=== PATIENT | male | born 1990 | race Caucasian/White ===

== ENCOUNTER 2016-04-25 15:38 | Emergency (ER) | payer OTHER ==
--- NOTE | 2016-04-25 16:08 | ED NURSING NOTES ---
Clinical Report - Nurses [address] [place] [address] 04/25/2016 15:40 Patient: ARTEM VASQUEZ JR TRIAGE Triage time 1548. Chief Complaint: SORE THROAT. Alert. No acute distress. --15:52 Rubén Wheeler R.N. 15:48 04/25/16. BP: 121/77. HR: 79. RR: 18. O2 saturation: 99%. --15:52 Rubén Wheeler R.N. 15:53 04/25/16. Temp: 98.6 F (oral). --15:53 Rubén Wheeler R.N. Weight: 90.7 kg stated. Height/Length: 74 inches Per Patient. BMI: 25.7. --15:51 Rubén Wheeler R.N. Allergies No Known Drug Allergy. --16:27 Govind Wynne R.N. History Arrived by private vehicle, and accompanied by family. Onset. (about 3 days ago). 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 PAST MEDICAL HX: Immunizations: up-to-date. SOCIAL HX: Never smoker. Occasional alcohol use. History of drug use. (never). He has traveled outside the [place] in the last 3 weeks. FALL RISK ASSESSMENT: Fall risk assessment completed. No fall risk identified. NUTRITIONAL RISK ASSESSMENT: The nutritional risk assessment revealed no deficiencies. FUNCTIONAL ASSESSMENT: Functional assessment: no impairments noted. LEARNING NEEDS ASSESSMENT: The learning needs assessment revealed no barriers. SKIN INTEGRITY ASSESSMENT: Skin integrity risk assessment completed. No skin integrity risk identified. --15:52 Rubén Wheeler R.N. Interventions ID band on patient. --15:52 Rubén Wheeler R.N. PHYSICAL ASSESSMENT Ambulatory to room. GENERAL / NEURO / PSYCH: Alert. Oriented X 4. Appears in no acute distress. HEENT: Pupils equal, round and reactive to light. Pharynx within normal limits. Voice within normal limits. Mouth within normal limits upon inspection. No dental injury noted. Mucous membranes are pink. RESPIRATORY: Respirations not labored. Cough. CVS: Capillary refill less than 2 seconds. SKIN: Skin is warm and dry. Normal skin turgor. --15:52 Rubén Wheeler R.N. GENERAL / NEURO / PSYCH: Alert. Oriented X 4. Appears in no acute distress. --16:12 Rubén Wheeler R.N. NURSING PROGRESS NOTES Side rails up x 1. Bed placed in lowest position. Brakes of bed on. --15:52 Rubén Wheeler R.N. DISPOSITION / DISCHARGE 16:25 04/25/16. Departure time: 1624. Condition at departure: unchanged and stable. No learning barriers present. Reviewed medication(s) side effects, precautions, dosing and course information. Prescription(s) given to the patient. Patient verbalized understanding. Written instructions provided in Hungarian. The patient was discharged by the physician. He was discharged home and accompanied by spouse. He left the Emergency Department ambulatory and via private vehicle. Patient driving. --16:25 Govind Wynne R.N. Locked/Released at 04/25/2016 18:46 by Rubén Wheeler R.N.
--- NOTE | 2016-04-25 16:08 | ED NURSING NOTES ---
Clinical Report - Nurses [facility] [address] [place] [address] 04/25/2016 15:40 Patient: ARTEM VASQUEZ JR TRIAGE Triage time 1548. Chief Complaint: SORE THROAT. Alert. No acute distress. --15:52 Rubén Wheeler R.N. 15:48 04/25/16. BP: 121/77. HR: 79. RR: 18. O2 saturation: 99%. --15:52 Rubén Wheeler R.N. 15:53 04/25/16. Temp: 98.6 F (oral). --15:53 Rubén Wheeler R.N. Weight: 90.7 kg stated. Height/Length: 74 inches Per Patient. BMI: 25.7. --15:51 Rubén Wheeler R.N. Allergies No Known Drug Allergy. --16:27 Govind Wynne R.N. History Arrived by private vehicle, and accompanied by family. Onset. (about 3 days ago). 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 PAST MEDICAL HX: Immunizations: up-to-date. SOCIAL HX: Never smoker. Occasional alcohol use. History of drug use. (never). He has traveled outside the [place] in the last 3 weeks. FALL RISK ASSESSMENT: Fall risk assessment completed. No fall risk identified. NUTRITIONAL RISK ASSESSMENT: The nutritional risk assessment revealed no deficiencies. FUNCTIONAL ASSESSMENT: Functional assessment: no impairments noted. LEARNING NEEDS ASSESSMENT: The learning needs assessment revealed no barriers. SKIN INTEGRITY ASSESSMENT: Skin integrity risk assessment completed. No skin integrity risk identified. --15:52 Rubén Wheeler R.N. Interventions ID band on patient. --15:52 Rubén Wheeler R.N. PHYSICAL ASSESSMENT Ambulatory to room. GENERAL / NEURO / PSYCH: Alert. Oriented X 4. Appears in no acute distress. HEENT: Pupils equal, round and reactive to light. Pharynx within normal limits. Voice within normal limits. Mouth within normal limits upon inspection. No dental injury noted. Mucous membranes are pink. RESPIRATORY: Respirations not labored. Cough. CVS: Capillary refill less than 2 seconds. SKIN: Skin is warm and dry. Normal skin turgor. --15:52 Rubén Wheeler R.N. GENERAL / NEURO / PSYCH: Alert. Oriented X 4. Appears in no acute distress. --16:12 Rubén Wheeler R.N. NURSING PROGRESS NOTES Side rails up x 1. Bed placed in lowest position. Brakes of bed on. --15:52 Rubén Wheeler R.N. DISPOSITION / DISCHARGE 16:25 04/25/16. Departure time: 1624. Condition at departure: unchanged and stable. No learning barriers present. Reviewed medication(s) side effects, precautions, dosing and course information. Prescription(s) given to the patient. Patient verbalized understanding. Written instructions provided in Bruneian. The patient was discharged by the physician. He was discharged home and accompanied by spouse. He left the Emergency Department ambulatory and via private vehicle. Patient driving. --16:25 Govind Wynne R.N. Locked/Released at 04/25/2016 18:46 by Rubén Wheeler R.N.
--- NOTE | 2016-04-25 16:08 | ED CLINICAL REPORT ---
Clinical Report - Physicians/Mid Levels [facility] [address] [place] [address] 04/25/2016 15:40 Patient: ARTEM VASQUEZ JR Arrived- By private vehicle. Historian- patient. HISTORY OF PRESENT ILLNESS Chief Complaint: COUGH and SORE THROAT. This started past few days and is still present (staying the same). It was gradual in onset and has been constant but is not gone now. The illness is described as mild. The patient has had a cough, a sore throat, nasal congestion and a nasal discharge. No sputum production, chest discomfort or pain, fever or muscle aches. No chills, hoarseness, sinus pressure, sinus drainage or ear pain. Additional history - The patient has had contact with a sick spouse. Similar symptoms previously: None. Recent medical care: Not recently seen/assessed. REVIEW OF SYSTEMS No headache, nausea, vomiting, abdominal pain or skin rash. All systems otherwise negative, except as recorded above. PAST HISTORY See nurses notes. Allergies: No Known Drug Allergy. SOCIAL HISTORY Never smoker. Occasional alcohol use. No drug use. Recent travel. ADDITIONAL NOTES The nursing notes have been reviewed. PHYSICAL EXAM Vital Signs: 04/25/2016 15:53 Temp: 98.6 F. 04/25/2016 15:48 BP: 121/77. HR: 79. RR: 18. O2 saturation: 99%. Blood pressure normal. Oxygen saturation normal. Appearance: Alert. No acute distress. Eyes: Pupils equal, round and reactive to light. Eyes normal inspection. ENT: Ears normal. Nose normal. Pharynx normal. Uvula midline. Neck: Normal inspection. Neck supple. CVS: Normal heart rate and rhythm. Heart sounds normal. Pulses normal. Respiratory: No respiratory distress. Breath sounds normal. Abdomen: Soft and nontender. No organomegaly. Back: Normal inspection. Skin: Skin warm and dry. Normal skin color. No rash. Normal skin turgor. Extremities: Extremities exhibit normal ROM. No lower extremity edema. PROGRESS AND PROCEDURES Course of Care: the patietn is a 25 yo male with no pertinent past medical history. patient with cough and recent travel. Had discussion with patient about chest xray. patient declines at this time. states he would only like something for the cough since it is bugging him. lungs are clear on exam. patient non-toxic. feel it is reasonable at this time to avoid radiation based on lung examination and overall well appearance. vitals are also normal. no signs of systemic involvement. patient reevaluated and found to be resting in no acute distress. medications for cough provided. Discussed with patient work up, diagnosis, home care, follow up, and return precautions. All questions answered. Patient expressed understanding of these instructions and was agreeable to them. Disposition: Discharged. Condition: good. CLINICAL IMPRESSION 04/25/2016 15:53 Temp: 98.6 F. 04/25/2016 15:48 BP: 121/77. HR: 79. RR: 18. O2 saturation: 99%. Blood pressure normal. Oxygen saturation normal. Acute pharyngitis. INSTRUCTIONS Warnings: GENERAL WARNINGS: Return or contact your physician immediately if your condition worsens or changes unexpectedly, if not improving as expected, or if other problems arise. Specifically return if pain, vomiting, bleeding, breathing difficulty or fever. Prescription Medications: Phenergan w/ Codeine 10mg / 6.25mg per 5 mL: take 1 teaspoon every 6 hours. Dispense sixty (60) mL. No refill. Substitution is permissible. (PRN: cough and congestion) Follow-up: Return to the emergency department as needed. Follow up with your doctor in three days. Reason for referral: recheck today's concerns. Summary of care provided to patient via paper. Screening today revealed the patient's blood pressure to be in the normal range. The patient should follow up with a primary care provider for blood pressure management. Understanding of the discharge instructions verbalized by patient. (Electronically signed by Michael Powell Dr. 05/01/2016 14:47)
--- NOTE | 2016-05-01 14:47 | ED MED RECONCILIATION SUMMARY ---
Patient: ARTEM VASQUEZ JR Medication Reconciliation Report [facility] VisitID: [id number] [address] [place] [address] 25y, M Registration Date/Time: 04/25/2016 Weight: 90.7 kg Height/Length: 74 in. BMI: 25.7 ALLERGIES: No Known Drug Allergy The patient's Home Medications are listed below: Not obtained. The source(s) of the original Home Medication information: Not obtained. The following Medications were given to the patient in the Emergency Department: None. The following Medications were prescribed to the patient: Phenergan w/ Codeine 10mg / 6.25mg per 5 mL: take 1 teaspoon every 6 hours. Dispense sixty (60) mL. No refill. Substitution is permissible.(PRN: cough and congestion) -- Michael Powell Dr.
--- NOTE | 2016-05-01 14:47 | ED DISCHARGE INSTRUCTIONS ---
Patient: ARTEM VASQUEZ JR General Instructions [facility] VisitID: [id number] [place] [address] 25y, M Registration Date/Time: 04/25/2016 04/25/2016 15:53 Temp: 98.6 F. 04/25/2016 15:48 BP: 121/77. HR: 79. RR: 18. O2 saturation: 99%. Blood pressure normal. Oxygen saturation normal. Acute pharyngitis. INSTRUCTIONS Warnings: GENERAL WARNINGS: Return or contact your physician immediately if your condition worsens or changes unexpectedly, if not improving as expected, or if other problems arise. Specifically return if pain, vomiting, bleeding, breathing difficulty or fever. Prescription Medications: Phenergan w/ Codeine 10mg / 6.25mg per 5 mL: take 1 teaspoon every 6 hours. Dispense sixty (60) mL. No refill. Substitution is permissible. (PRN: cough and congestion) Follow-up: Return to the emergency department as needed. Follow up with your doctor in three days. Reason for referral: recheck today's concerns. Summary of care provided to patient via paper. Screening today revealed the patient's blood pressure to be in the normal range. The patient should follow up with a primary care provider for blood pressure management. Understanding of the discharge instructions verbalized by patient. ADDITIONAL INFORMATION Viral Respiratory Illness [Adult] You have an Upper Respiratory Illness (URI) caused by a virus. This illness is contagious during the first few days. It is spread through the air by coughing and sneezing or by direct contact (touching the sick person and then touching your own eyes, nose or mouth). Most viral illnesses go away within 7-10 days with rest and simple home remedies. Sometimes, the illness may last for several weeks. Antibiotics will not kill a virus and are generally not prescribed for this condition. Home Care: 1) If symptoms are severe, rest at home for the first 2-3 days. When you resume activity, don't let yourself get too tired. 2) Avoid being exposed to cigarette smoke (yours or others). 3) Tylenol (acetaminophen) or ibuprofen (Advil, Motrin) will help fever, muscle aching and headache. (Persons under 18 with fever should not take aspirin since this may cause liver damage.) 4) Your appetite may be poor, so a light diet is fine. Avoid dehydration by drinking 6-8 glasses of fluids per day (water, soft drinks, juices, tea, soup). Extra fluids will help loosen secretions in the nose and lungs. 5) Httl-amr-nerksae cold medicines will not shorten the length of time youre sick, but they may be helpful for the following symptoms: cough (Robitussin DM); sore throat (Chloraseptic lozenges or spray); nasal and sinus congestion (Actifed, Sudafed, Chlortrimeton). Follow Up with your doctor or as advised if you dont improve over the next week. Get Prompt Medical Attention if any of the following occur: -- Cough with lots of colored sputum (mucus) or blood in your sputum -- Chest pain, shortness of breath, wheezing or have trouble breathing -- Severe headache; face, neck or ear pain -- Fever over 100.4 F (38.0 C) for more than three days -- You cant swallow due to throat pain You have been given the following additional information: Uri, Viral, No Abx (Adult) (Electronically signed by Michael Powell Dr. 05/01/2016 14:47)
--- NOTE | 2016-05-01 14:47 | ED MED RECONCILIATION SUMMARY ---
Patient: ARTEM VASQUEZ JR Medication Reconciliation Report [facility] VisitID: [id number] [address] [place] [address] 25y, M Registration Date/Time: 04/25/2016 Weight: 90.7 kg Height/Length: 74 in. BMI: 25.7 ALLERGIES: No Known Drug Allergy The patient's Home Medications are listed below: Not obtained. The source(s) of the original Home Medication information: Not obtained. The following Medications were given to the patient in the Emergency Department: None. The following Medications were prescribed to the patient: Phenergan w/ Codeine 10mg / 6.25mg per 5 mL: take 1 teaspoon every 6 hours. Dispense sixty (60) mL. No refill. Substitution is permissible.(PRN: cough and congestion) -- Michael Powell Dr.
--- NOTE | 2016-05-01 14:47 | ED MAR SUMMARY ---
..... Medication Administration Record [facility] [address], [place] [id number] Patient: CHANEL VASQUEZN Lilibeth Visit ID: [id number] 25y, M Weight: 90.7 kg Height/Length: 74 in BMI: 25.7 ALLERGIES: No Known Drug Allergy
--- NOTE | 2016-05-01 14:47 | ED MAR SUMMARY ---
..... Medication Administration Record [facility] [address] [place], [place] [id number] Patient: CHANEL VASQUEZN Lilibeth Visit ID: [id number] 25y, M Weight: 90.7 kg Height/Length: 74 in BMI: 25.7 ALLERGIES: No Known Drug Allergy
== END 2016-04-25 16:24 | disposition home or self-care (01) ==
LOC: ED SRH 15:38
DX: J02.9 Acute pharyngitis, unspecified (principal)

== ENCOUNTER 2016-09-09 13:12 | Emergency (ER) | payer OTHER ==
--- NOTE | 2016-09-09 15:36 | ED NURSING NOTES ---
Clinical Report - Nurses [facility] [address] [place] [address] 09/09/2016 13:16 Patient: ARTEM VASQUEZ JR TRIAGE Triage time 13:Sep 09 2016. Chief Complaint: TESTICULAR PAIN. Alert. No acute distress. SEPSIS SCREEN: Sepsis Screen. Negative (no infection suspected/documented). --13:26 Nahid Wadsworth R.N. 13:22 09/09/16. BP: 133/53. HR: 86. RR: 16. O2 saturation: 97% on room air. Temp: 97.6 F. Pain level now: 12/02. --13:26 Nahid Wadsworth R.N. Weight: 95.2 kg stated. Height/Length: 74 inches Per Patient. BMI: 27. --13:21 Nahid Wadsworth R.N. Medications Motrin Oral. --13:24 Nahid Wadsworth R.N. Allergies No Known Drug Allergy. --13:24 Nahid Wadsworth R.N. History Arrived by private vehicle. Historian: patient. Onset. (3-4 months ago). ( Pt has been experiencing this aching L testicular pain for the past few months. Is in the [employer], has been seeing the [facility] doctor who has prescribed Motrin and "a swelling medicine" for the pain but Pt has had no relief. Pt also reports some bruising to the testicle at times.). He has had testicular pain. ( Pt reports an aching pain along with an intermittent sharpness radiating to his L thigh and inguinal area.). No discomfort with urination or urgency of urination. Able to void. PAST MEDICAL HX: Immunizations: up-to-date. SOCIAL HX: Never smoker. Occasional alcohol use. No drug use. No infectious disease exposure. ABUSE ASSESSMENT: Abuse assessment: The patient was asked "Do you feel safe in your home?". No report of abuse. SELF HARM ASSESSMENT: A self harm assessment was performed. The patient answered "no" to the question "Have you recently felt down, depressed, or hopeless?" and "Do you have thoughts of harming or killing yourself?". FALL RISK ASSESSMENT: Fall risk assessment completed. No fall risk identified. NUTRITIONAL RISK ASSESSMENT: The nutritional risk assessment revealed no deficiencies. FUNCTIONAL ASSESSMENT: Functional assessment: no impairments noted. LEARNING NEEDS ASSESSMENT: The learning needs assessment revealed no barriers. SKIN INTEGRITY ASSESSMENT: Skin integrity risk assessment completed. No skin integrity risk identified. --13:26 Nahid Wadsworth R.N. PROBLEMS: URI. --13:24 Nahid Wadsworth R.N. ADDITIONAL SURGERIES: Tonsillectomy. --13:24 Nahid Wadsworth R.N. Interventions ID band on patient. To treatment room. --13:26 Nahid Wadsworth R.N. PHYSICAL ASSESSMENT Ambulatory to room. GENERAL / NEURO / PSYCH: Alert. Oriented X 4. Appears in no acute distress. HEENT: Mucous membranes are pink. RESPIRATORY: Respirations not labored. CVS: Capillary refill less than 2 seconds. SKIN: Skin is warm and dry. --13:28 Nahid Wadsworth R.N. NURSING PROGRESS NOTES The plan of care for this patient has been created. Patient gowned. Head of bed elevated. Reassurance given. Two patient identifiers checked. Call light placed in reach. Bed placed in lowest position. Patient ready for evaluation. --13:29 Nahid Wadsworth R.N. ( MD in to assess Pt.). --13:38 Nahid Wadsworth R.N. Patient ID band checked for patient name and birthdate: patient confirmed. Instructions provided to collect clean catch urine and patient verbalized understanding. Clean catch urine collected with return of yellow-colored urine; sample sent to lab for urinalysis. Specimen labeled in the presence of the patient. ( US at bedside.). --14:25 Nahid Wadsworth R.N. late entry - 14:30. --15:12 Nahid Wadsworth R.N. 14:30 09/09/16. BP: 131/72. HR: 65. RR: 16. O2 saturation: 98% on room air. --15:12 Nahid Wadsworth R.N. ( Pt reports he is feeling better, awaiting results from US and lab, no needs, wctm.). --15:13 Nahid Wadsworth R.N. 15:12 09/09/16. BP: 122/75. HR: 66. RR: 16. O2 saturation: 97% on room air. --15:13 Nahid Wadsworth R.N. DISPOSITION / DISCHARGE Departure time: 15:58 Sep 09 2016. Condition at departure: stable. The goals identified in the patient's plan of care were met. No learning barriers present. Discharge instructions provided and reviewed with the patient. Reviewed warnings (Pt instructed not to drive while taking his [place] Rx, also not to combine with ETOH.). Reviewed medication(s) side effects, precautions, dosing and course information. Prescription(s) given to the patient ([place]). Reviewed referral to a primary care physician for followup. Patient verbalized understanding. Written instructions provided in Micronesian. The patient was discharged home. He left the Emergency Department ambulatory and via private vehicle. Patient driving. ( MD in to talk to Pt about dx. Pt stable, ambulatory, states he is feeling better, VS deferred on DC as they were just checked at 1512.). --15:59 Nahid Wadsworth R.N. 15:57 09/09/16. HR: deferred. RR: deferred. O2 saturation: deferred. Temp: deferred. Pain level now deferred. --15:59 Nahid Wadsworth R.N. 15:59 09/09/16. BP: deferred. --15:59 Nahid Wadsworth R.N. Locked/Released at 09/09/2016 15:59 by Nahid Wadsworth R.N.
--- NOTE | 2016-09-09 15:36 | ED NURSING NOTES ---
Clinical Report - Nurses [facility] [address] [place] [address] 09/09/2016 13:16 Patient: ARTEM VASQUEZ JR TRIAGE Triage time 13:Sep 09 2016. Chief Complaint: TESTICULAR PAIN. Alert. No acute distress. SEPSIS SCREEN: Sepsis Screen. Negative (no infection suspected/documented). --13:26 Nahid Wadsworth R.N. 13:22 09/09/16. BP: 133/53. HR: 86. RR: 16. O2 saturation: 97% on room air. Temp: 97.6 F. Pain level now: 12/02. --13:26 Nahid Wadsworth R.N. Weight: 95.2 kg stated. Height/Length: 74 inches Per Patient. BMI: 27. --13:21 Nahid Wadsworth R.N. Medications Motrin Oral. --13:24 Nahid Wadsworth R.N. Allergies No Known Drug Allergy. --13:24 Nahid Wadsworth R.N. History Arrived by private vehicle. Historian: patient. Onset. (3-4 months ago). ( Pt has been experiencing this aching L testicular pain for the past few months. Is in the [employer], has been seeing the [facility] doctor who has prescribed Motrin and "a swelling medicine" for the pain but Pt has had no relief. Pt also reports some bruising to the testicle at times.). He has had testicular pain. ( Pt reports an aching pain along with an intermittent sharpness radiating to his L thigh and inguinal area.). No discomfort with urination or urgency of urination. Able to void. PAST MEDICAL HX: Immunizations: up-to-date. SOCIAL HX: Never smoker. Occasional alcohol use. No drug use. No infectious disease exposure. ABUSE ASSESSMENT: Abuse assessment: The patient was asked "Do you feel safe in your home?". No report of abuse. SELF HARM ASSESSMENT: A self harm assessment was performed. The patient answered "no" to the question "Have you recently felt down, depressed, or hopeless?" and "Do you have thoughts of harming or killing yourself?". FALL RISK ASSESSMENT: Fall risk assessment completed. No fall risk identified. NUTRITIONAL RISK ASSESSMENT: The nutritional risk assessment revealed no deficiencies. FUNCTIONAL ASSESSMENT: Functional assessment: no impairments noted. LEARNING NEEDS ASSESSMENT: The learning needs assessment revealed no barriers. SKIN INTEGRITY ASSESSMENT: Skin integrity risk assessment completed. No skin integrity risk identified. --13:26 Nahid Wadsworht R.N. PROBLEMS: URI. --13:24 Nahid Wadsworth R.N. ADDITIONAL SURGERIES: Tonsillectomy. --13:24 Nahid Wadsworth R.N. Interventions ID band on patient. To treatment room. --13:26 Nahid Wadsworth R.N. PHYSICAL ASSESSMENT Ambulatory to room. GENERAL / NEURO / PSYCH: Alert. Oriented X 4. Appears in no acute distress. HEENT: Mucous membranes are pink. RESPIRATORY: Respirations not labored. CVS: Capillary refill less than 2 seconds. SKIN: Skin is warm and dry. --13:28 Nahid Wadsworth R.N. NURSING PROGRESS NOTES The plan of care for this patient has been created. Patient gowned. Head of bed elevated. Reassurance given. Two patient identifiers checked. Call light placed in reach. Bed placed in lowest position. Patient ready for evaluation. --13:29 Nahid Wadsworth R.N. ( MD in to assess Pt.). --13:38 Nahid Wadsworth R.N. Patient ID band checked for patient name and birthdate: patient confirmed. Instructions provided to collect clean catch urine and patient verbalized understanding. Clean catch urine collected with return of yellow-colored urine; sample sent to lab for urinalysis. Specimen labeled in the presence of the patient. ( US at bedside.). --14:25 Nahid Wadsworth R.N. late entry - 14:30. --15:12 Nahid Wadsworth R.N. 14:30 09/09/16. BP: 131/72. HR: 65. RR: 16. O2 saturation: 98% on room air. --15:12 Nahid Wadsworth R.N. ( Pt reports he is feeling better, awaiting results from US and lab, no needs, wctm.). --15:13 Nahid Wadsworth R.N. 15:12 09/09/16. BP: 122/75. HR: 66. RR: 16. O2 saturation: 97% on room air. --15:13 Nahid Wadsworth R.N. DISPOSITION / DISCHARGE Departure time: 15:58 Sep 09 2016. Condition at departure: stable. The goals identified in the patient's plan of care were met. No learning barriers present. Discharge instructions provided and reviewed with the patient. Reviewed warnings (Pt instructed not to drive while taking his [place] Rx, also not to combine with ETOH.). Reviewed medication(s) side effects, precautions, dosing and course information. Prescription(s) given to the patient ([place]). Reviewed referral to a primary care physician for followup. Patient verbalized understanding. Written instructions provided in French. The patient was discharged home. He left the Emergency Department ambulatory and via private vehicle. Patient driving. ( MD in to talk to Pt about dx. Pt stable, ambulatory, states he is feeling better, VS deferred on DC as they were just checked at 1512.). --15:59 Nahid Wadsworth R.N. 15:57 09/09/16. HR: deferred. RR: deferred. O2 saturation: deferred. Temp: deferred. Pain level now deferred. --15:59 Nahid Wadsworth R.N. 15:59 09/09/16. BP: deferred. --15:59 Nahid Wadsworth R.N. Locked/Released at 09/09/2016 15:59 by Nahid Wadsworth R.N.
--- NOTE | 2016-09-09 15:36 | ED ORDER SUMMARY ---
..... Patient: ARTEM VASQUEZ JR OrderSheet [facility] VisitID: [id number] [address] [place] [address] 26y, M Registration Date/Time: 09/09/2016 ORDER SHEET Weight: 95.2 kg (stated) Allergies: No Known Drug Allergy GENERAL ORDERS: US Scrotum/Testicular Urgent (13:38 09/09/2016 Van Sommers) (Ack 13:40 IJurca ER Tech1) (14:25 MCook R.N.) UA-Culture if indicated Urgent (13:39 09/09/2016 Van Sommers) (Ack 13:40 IJurca ER Tech1) (14:25 MCook R.N.) MEDICATION ORDERS: IV FLUIDS: ORDER SHEET NOTES: [Electronically signed by Nahid Wadsworth R.N. (15:59 09/09/2016)] [Electronically signed by Michael Powell Dr. (09:11 09/16/2016)] [Electronically locked/signed by Nahid Wadsworth R.N. (15:59 09/09/2016)]
--- NOTE | 2016-09-09 15:36 | ED CLINICAL REPORT ---
Clinical Report - Physicians/Mid Levels [facility] [address] [place] [address] 09/09/2016 13:16 Patient: ARTEM VASQUEZ JR Time Seen: 1331. Arrived- By private vehicle. Historian- patient. HISTORY OF PRESENT ILLNESS Chief Complaint: LEFT TESTICULAR PAIN. This started past month and is still present and worsening. The problem is described as moderate. It was abrupt in onset and has been intermittent and waxing/waning but is not gone now. No penile discharge, discomfort with urination, urinary frequency, genital lesion or urgency of urination. No inguinal swelling or problem with the foreskin. He has had testicular pain. Able to void. Sexual history is not noncontributory. (states he was told to take ibuprofen by the doctor. states he still has the discomfort and would like to be evaluated.). Similar symptoms previously: None. Recent medical care: The patient was seen recently in a clinic. REVIEW OF SYSTEMS No fever. All systems otherwise negative, except as recorded above. PAST HISTORY See nurses notes. SOCIAL HISTORY Never smoker. No alcohol use or drug use. No recent travel. Is a local resident. ADDITIONAL NOTES The nursing notes have been reviewed. PHYSICAL EXAM Vital Signs: 09/09/2016 13:22 BP: 133/53. HR: 86. RR: 16. O2 saturation: 97%. Temp: 97.6 F. Pain level now: 8/10. Blood pressure normal. Oxygen saturation normal. Appearance: Alert. Oriented X3. No acute distress. CVS: Heart sounds normal. Respiratory: No respiratory distress. Breath sounds normal. Abdomen: Soft and nontender. Bowel sounds normal. No mass. : Normal genitalia. Testes descended. (no masses. no lesions. no overlying skin changes. no hernia. circumcised. no discharge. no lymphadenopathy. intact cremasteric reflex.). Skin: Skin warm and dry. Normal skin color. No rash. Normal skin turgor. Extremities: Extremities exhibit normal ROM. No lower extremity edema. Neuro: Oriented X 3. No motor deficit. No sensory deficit. LABS, X-RAYS, AND EKG Testicular Scan: (left vericocele). Flow not decreased. The study was independently viewed by me and interpreted by the radiologist. The study was discussed with the radiologist (via pacs). Laboratory Tests: UA-Culture if indicated: (TJ: 09/09/2016 14:20) ( MsgRcvd 09/09/2016 14:48) IP Test Result Flag Units (Reference) URINE COLOR YELLOW URINE APPEARANCE CLEAR URINE GLUCOSE NEGATIVE (NEGATIVE) URINE BILIRUBIN NEGATIVE (NEGATIVE) URINE KETONE NEGATIVE (NEGATIVE) URINE SPECIFIC GRAVITY 1.015 (1.010-1.030) URINE PH 7.0 (5.0-8.0) URINE PROTEIN NEGATIVE (NEGATIVE) URINE UROBILINOGEN 0.2 EU/dL (0.2-1.0) URINE NITRITE NEGATIVE (NEGATIVE) URINE BLOOD NEGATIVE (NEGATIVE) URINE LEUK ESTERASE NEGATIVE (NEGATIVE) . PROGRESS AND PROCEDURES Course of Care: The patient is a pleasant 26 yo m with no pertinent past medical history. Exam does not indicate torsion or hernia however will evaluate with US for torsion. Do not feel further evaluation needed for hernia given exam. no abdominal tenderness. no concer for STI given patient's reported history of no new sexual partners, dysuria, or discharge. Patient declines offers of pain medications. He is non-toxic and afebrile. Work up remarkable for the findings above. Patient without other more sinister findings. Discussed with patient his work up here in the emergency department, diagnosis, followup, home care, and follow up. All questions answered. Patient expressed understanding of these instructions and was agreeable to them. Disposition: Discharged. Condition: good. CLINICAL IMPRESSION 09/09/2016 15:12 BP: 122/75. HR: 66. RR: 16. O2 saturation: 97%. Blood pressure normal. Oxygen saturation normal. Scrotal varicocele on the left side (acute). INSTRUCTIONS Warnings: CONTROLLED SUBSTANCE WARNINGS. GENERAL WARNINGS: Return or contact your physician immediately if your condition worsens or changes unexpectedly, if not improving as expected, or if other problems arise. Specifically return if pain, vomiting, bleeding, breathing difficulty or fever. Your Current Medications: CONTINUE TAKING THE FOLLOWING MEDICATIONS: Motrin Oral. Prescription Medications: [place] 5 mg / 325 mg tablets: take 1 orally every 6 hours as needed for pain. Dispense ten (10). No refill. Substitution is permissible. Follow-up: Return to the emergency department as needed. Follow up with your doctor. Reason for referral: recheck today's concerns. Summary of care provided to patient via paper. Screening today revealed the patient's blood pressure to be in the normal range. The patient should follow up with a primary care provider for blood pressure management. Understanding of the discharge instructions verbalized by patient. (Electronically signed by Michael Powell Dr. 09/16/2016 9:11)
--- NOTE | 2016-09-09 15:36 | ED ORDER SUMMARY ---
..... Patient: ARTEM VASQUEZ JR OrderSheet [facility] VisitID: [id number] [address] [place] [address] 26y, M Registration Date/Time: 09/09/2016 ORDER SHEET Weight: 95.2 kg (stated) Allergies: No Known Drug Allergy GENERAL ORDERS: US Scrotum/Testicular Urgent (13:38 09/09/2016 Van Sommers) (Ack 13:40 IJurca ER Tech1) (14:25 MCook R.N.) UA-Culture if indicated Urgent (13:39 09/09/2016 Van Sommers) (Ack 13:40 IJurca ER Tech1) (14:25 MCook R.N.) MEDICATION ORDERS: IV FLUIDS: ORDER SHEET NOTES: [Electronically signed by Nahid Wadsworth R.N. (15:59 09/09/2016)] [Electronically signed by Michael Powell Dr. (09:11 09/16/2016)] [Electronically locked/signed by Nahid Wadsworth R.N. (15:59 09/09/2016)]
--- NOTE | 2016-09-09 15:46 | DIAGNOSTIC IMAGING REPORT ---
PROCEDURE: US SCROTUM/TESTICLE INDICATION: RECENT BRUISING AND PAIN TO THE LEFT TECHNIQUE: Geller scale and color Doppler sonographic images through the scrotum were obtained. COMPARISON: None. FINDINGS: RIGHT TESTICLE: Measures 4.9 x 3.4 x 2.1 cm with normal echo structure and vascularity. 2.2 mm epididymal cyst. LEFT TESTICLE: Measures 4.9 x 3.2 x 2.3 cm with normal echo structure and vascularity. Normal epididymis. Small varicocele. IMPRESSION: 1. Left varicocele 2. Normal bilateral testicles.
--- NOTE | 2016-09-16 09:11 | ED DISCHARGE INSTRUCTIONS ---
Patient: ARTEM VASQUEZ JR General Instructions [facility] VisitID: [id number] [place] [address] 26y, M Registration Date/Time: 09/09/2016 09/09/2016 15:12 BP: 122/75. HR: 66. RR: 16. O2 saturation: 97%. Blood pressure normal. Oxygen saturation normal. Scrotal varicocele on the left side (acute). INSTRUCTIONS Warnings: CONTROLLED SUBSTANCE WARNINGS. GENERAL WARNINGS: Return or contact your physician immediately if your condition worsens or changes unexpectedly, if not improving as expected, or if other problems arise. Specifically return if pain, vomiting, bleeding, breathing difficulty or fever. Your Current Medications: CONTINUE TAKING THE FOLLOWING MEDICATIONS: Motrin Oral. Prescription Medications: Dale 5 mg / 325 mg tablets: take 1 orally every 6 hours as needed for pain. Dispense ten (10). No refill. Substitution is permissible. Follow-up: Return to the emergency department as needed. Follow up with your doctor. Reason for referral: recheck today's concerns. Summary of care provided to patient via paper. Screening today revealed the patient's blood pressure to be in the normal range. The patient should follow up with a primary care provider for blood pressure management. Understanding of the discharge instructions verbalized by patient. ADDITIONAL INFORMATION Hydrocodone Bitartrate, Acetaminophen Oral tablet What is this medicine? ACETAMINOPHEN; HYDROCODONE (a set a CAMELIA jyoti fen; rhiannon droe KOE done) is a pain reliever. It is used to treat mild to moderate pain. How should I use this medicine? Take this medicine by mouth. Swallow it with a full glass of water. Follow the directions on the prescription label. If the medicine upsets your stomach, take the medicine with food or milk. Do not take more than you are told to take. Talk to your gizzard peeler regarding the use of this medicine in children. This medicine is not approved for use in children. What side effects may I notice from receiving this medicine? Side effects that you should report to your doctor or health family day carer as soon as possible: allergic reactions like skin rash, itching or hives, swelling of the face, lips, or tongue breathing problems confusion feeling faint or lightheaded, falls stomach pain yellowing of the eyes or skin Side effects that usually do not require medical attention (report to your doctor or health family day carer if they continue or are bothersome): nausea, vomiting stomach upset What may interact with this medicine? alcohol antihistamines isoniazid medicines for depression, anxiety, or psychotic disturbances medicines for sleep muscle relaxants naltrexone narcotic medicines (opiates) for pain phenobarbital ritonavir tramadol What if I miss a dose? If you miss a dose, take it as soon as you can. If it is almost time for your next dose, take only that dose. Do not take double or extra doses. Where should I keep my medicine? Keep out of the reach of children. This medicine can be abused. Keep your medicine in a safe place to protect it from theft. Do not share this medicine with anyone. Selling or giving away this medicine is dangerous and against the law. Store at room temperature between 15 and 30 degrees C (59 and 86 degrees F). Protect from light. Keep container tightly closed. Throw away any unused medicine after the expiration date. Discard unused medicine and used packaging carefully. Pets and children can be harmed if they find used or lost packages. What should I tell my health care provider before I take this medicine? They need to know if you have any of these conditions: brain tumor Crohn's disease, inflammatory bowel disease, or ulcerative colitis drink more than 3 alcohol-containing drinks per day drug abuse or addiction head injury heart or circulation problems kidney disease or problems going to the bathroom liver disease lung disease, asthma, or breathing problems an unusual or allergic reaction to acetaminophen, hydrocodone, other opioid analgesics, other medicines, foods, dyes, or preservatives or trying to get breast-feeding What should I watch for while using this medicine? Tell your doctor or health family day carer if your pain does not go away, if it gets worse, or if you have new or a different type of pain. You may develop tolerance to the medicine. Tolerance means that you will need a higher dose of the medicine for pain relief. Tolerance is normal and is expected if you take the medicine for a long time. Do not suddenly stop taking your medicine because you may develop a severe reaction. Your body becomes used to the medicine. This does NOT mean you are addicted. Addiction is a behavior related to getting and using a drug for a non-medical reason. If you have pain, you have a medical reason to take pain medicine. Your doctor will tell you how much medicine to take. If your doctor wants you to stop the medicine, the dose will be slowly lowered over time to avoid any side effects. You may get drowsy or dizzy when you first start taking the medicine or change doses. Do not drive, use machinery, or do anything that may be dangerous until you know how the medicine affects you. Stand or sit up slowly. There are different types of narcotic medicines (opiates) for pain. If you take more than one type at the same time, you may have more side effects. Give your health care provider a list of all medicines you use. Your doctor will tell you how much medicine to take. Do not take more medicine than directed. Call emergency for help if you have problems breathing. The medicine will cause constipation. Try to have a bowel movement at least every 2 to 3 days. If you do not have a bowel movement for 3 days, call your doctor or health family day carer. Too much acetaminophen can be very dangerous. Do not take Tylenol (acetaminophen) or medicines that contain acetaminophen with this medicine. Many non-prescription medicines contain acetaminophen. Always read the labels carefully. You have been given the following additional information: Hydrocodone Bitartrate, Acetaminophen Oral tablet (Electronically signed by Michael Powell Dr. 09/16/2016 9:11)
--- NOTE | 2016-09-16 09:11 | ED MED RECONCILIATION SUMMARY ---
Patient: ARTEM VASQUEZ JR Medication Reconciliation Report [facility] VisitID: [id number] [address] [place] [address] 26y, M Registration Date/Time: 09/09/2016 Weight: 95.2 kg Height/Length: 74 in. BMI: 27.0 ALLERGIES: No Known Drug Allergy The patient's Home Medications are listed below: CONTINUE TAKING THE FOLLOWING MEDICATIONS: Motrin Oral The source(s) of the original Home Medication information: Not obtained. The following Medications were given to the patient in the Emergency Department: None. The following Medications were prescribed to the patient: [place] 5 mg / 325 mg tablets: take 1 orally every 6 hours as needed for pain. Dispense ten (10). No refill. Substitution is permissible. -- Michael Powell Dr.
--- NOTE | 2016-09-16 09:11 | ED MAR SUMMARY ---
..... Medication Administration Record [facility] [address] [place], [place] [id number] Patient: CHANEL VASQUEZN Lilibeth Visit ID: [id number] 26y, M Weight: 95.2 kg Height/Length: 74 in BMI: 27 ALLERGIES: No Known Drug Allergy
--- NOTE | 2016-09-16 09:11 | ED MED RECONCILIATION SUMMARY ---
Patient: ARTEM VASQUEZ JR Medication Reconciliation Report [facility] VisitID: [id number] [address] [place] [address] 26y, M Registration Date/Time: 09/09/2016 Weight: 95.2 kg Height/Length: 74 in. BMI: 27.0 ALLERGIES: No Known Drug Allergy The patient's Home Medications are listed below: CONTINUE TAKING THE FOLLOWING MEDICATIONS: Motrin Oral The source(s) of the original Home Medication information: Not obtained. The following Medications were given to the patient in the Emergency Department: None. The following Medications were prescribed to the patient: [place] 5 mg / 325 mg tablets: take 1 orally every 6 hours as needed for pain. Dispense ten (10). No refill. Substitution is permissible. -- Michael Powell Dr.
--- NOTE | 2016-09-16 09:11 | ED DISCHARGE INSTRUCTIONS ---
Patient: ARTEM VASQUEZ JR General Instructions Formerly [facility] VisitID: [id number] [place] [address] 26y, M Registration Date/Time: 09/09/2016 09/09/2016 15:12 BP: 122/75. HR: 66. RR: 16. O2 saturation: 97%. Blood pressure normal. Oxygen saturation normal. Scrotal varicocele on the left side (acute). INSTRUCTIONS Warnings: CONTROLLED SUBSTANCE WARNINGS. GENERAL WARNINGS: Return or contact your physician immediately if your condition worsens or changes unexpectedly, if not improving as expected, or if other problems arise. Specifically return if pain, vomiting, bleeding, breathing difficulty or fever. Your Current Medications: CONTINUE TAKING THE FOLLOWING MEDICATIONS: Motrin Oral. Prescription Medications: Bicknell 5 mg / 325 mg tablets: take 1 orally every 6 hours as needed for pain. Dispense ten (10). No refill. Substitution is permissible. Follow-up: Return to the emergency department as needed. Follow up with your doctor. Reason for referral: recheck today's concerns. Summary of care provided to patient via paper. Screening today revealed the patient's blood pressure to be in the normal range. The patient should follow up with a primary care provider for blood pressure management. Understanding of the discharge instructions verbalized by patient. ADDITIONAL INFORMATION Hydrocodone Bitartrate, Acetaminophen Oral tablet What is this medicine? ACETAMINOPHEN; HYDROCODONE (a set a CAMELIA jyoti fen; rhiannon droe KOE done) is a pain reliever. It is used to treat mild to moderate pain. How should I use this medicine? Take this medicine by mouth. Swallow it with a full glass of water. Follow the directions on the prescription label. If the medicine upsets your stomach, take the medicine with food or milk. Do not take more than you are told to take. Talk to your demurrage agent regarding the use of this medicine in children. This medicine is not approved for use in children. What side effects may I notice from receiving this medicine? Side effects that you should report to your doctor or health acute care physical therapist as soon as possible: allergic reactions like skin rash, itching or hives, swelling of the face, lips, or tongue breathing problems confusion feeling faint or lightheaded, falls stomach pain yellowing of the eyes or skin Side effects that usually do not require medical attention (report to your doctor or health acute care physical therapist if they continue or are bothersome): nausea, vomiting stomach upset What may interact with this medicine? alcohol antihistamines isoniazid medicines for depression, anxiety, or psychotic disturbances medicines for sleep muscle relaxants naltrexone narcotic medicines (opiates) for pain phenobarbital ritonavir tramadol What if I miss a dose? If you miss a dose, take it as soon as you can. If it is almost time for your next dose, take only that dose. Do not take double or extra doses. Where should I keep my medicine? Keep out of the reach of children. This medicine can be abused. Keep your medicine in a safe place to protect it from theft. Do not share this medicine with anyone. Selling or giving away this medicine is dangerous and against the law. Store at room temperature between 15 and 30 degrees C (59 and 86 degrees F). Protect from light. Keep container tightly closed. Throw away any unused medicine after the expiration date. Discard unused medicine and used packaging carefully. Pets and children can be harmed if they find used or lost packages. What should I tell my health care provider before I take this medicine? They need to know if you have any of these conditions: brain tumor Crohn's disease, inflammatory bowel disease, or ulcerative colitis drink more than 3 alcohol-containing drinks per day drug abuse or addiction head injury heart or circulation problems kidney disease or problems going to the bathroom liver disease lung disease, asthma, or breathing problems an unusual or allergic reaction to acetaminophen, hydrocodone, other opioid analgesics, other medicines, foods, dyes, or preservatives or trying to get breast-feeding What should I watch for while using this medicine? Tell your doctor or health acute care physical therapist if your pain does not go away, if it gets worse, or if you have new or a different type of pain. You may develop tolerance to the medicine. Tolerance means that you will need a higher dose of the medicine for pain relief. Tolerance is normal and is expected if you take the medicine for a long time. Do not suddenly stop taking your medicine because you may develop a severe reaction. Your body becomes used to the medicine. This does NOT mean you are addicted. Addiction is a behavior related to getting and using a drug for a non-medical reason. If you have pain, you have a medical reason to take pain medicine. Your doctor will tell you how much medicine to take. If your doctor wants you to stop the medicine, the dose will be slowly lowered over time to avoid any side effects. You may get drowsy or dizzy when you first start taking the medicine or change doses. Do not drive, use machinery, or do anything that may be dangerous until you know how the medicine affects you. Stand or sit up slowly. There are different types of narcotic medicines (opiates) for pain. If you take more than one type at the same time, you may have more side effects. Give your health care provider a list of all medicines you use. Your doctor will tell you how much medicine to take. Do not take more medicine than directed. Call emergency for help if you have problems breathing. The medicine will cause constipation. Try to have a bowel movement at least every 2 to 3 days. If you do not have a bowel movement for 3 days, call your doctor or health acute care physical therapist. Too much acetaminophen can be very dangerous. Do not take Tylenol (acetaminophen) or medicines that contain acetaminophen with this medicine. Many non-prescription medicines contain acetaminophen. Always read the labels carefully. You have been given the following additional information: Hydrocodone Bitartrate, Acetaminophen Oral tablet (Electronically signed by Michael Powell Dr. 09/16/2016 9:11)
--- NOTE | 2016-09-16 09:11 | ED MAR SUMMARY ---
..... Medication Administration Record [facility] [address], [place] [id number] Patient: CHANEL VASQUEZN Lilibeth Visit ID: [id number] 26y, M Weight: 95.2 kg Height/Length: 74 in BMI: 27 ALLERGIES: No Known Drug Allergy
== END 2016-09-09 15:57 | disposition home or self-care (01) ==
LOC: ED SRH 13:12
DX: I86.1 Scrotal varices (principal)
CPT/HCPCS: 90004